=== PATIENT | female | born 1975 | race Two or more races ===

== ENCOUNTER 2021-06-14 07:02 | Day surgery (SDC) | payer OTHER ==
[~2021-06-14] VITALS: Ht 177.8 cm; Wt 109.8 kg
[~2021-06-14 07:02] MED LIST: ALLO300T2 PO; AMIT75TA2 PO; ATOR20TA50 PO; DICY20TA PO; FOLI1TAB6 PO; GABA-339 PO; INSLANTI SC; LEVO75TA6 PO; LISI2.5T47 PO; METF-372 PO; METH2.5T PO; METO-289 PO; PANT1INJ3 PO; PROM25TA5 PO; PUMP1CAP PO; SUMA100T15 PO; TRAM50TA2 PO
[2021-06-14] MEDS ORDERED: IODIXANOL 320MG/ML 100ML BTL IV ONE (07:55)
[2021-06-14] MEDS ORDERED: LIDOCAINE 2%HCL (LOCAL ANESTH.) INJ 20ML MDV ONE (07:55)
[2021-06-14] MEDS ORDERED: VERAPAMIL 2.5MG/ML INJ 2ML VIAL IV ONE (08:16)
[2021-06-14] MEDS ORDERED: HEPARIN SODIUM (PORCINE) 5000 UNITS/ML 1ML VIAL ONE (08:16)
[2021-06-14] MEDS ORDERED: ANGIOMAX 250 MG VIAL IV ONE (08:16)
[2021-06-14] MEDS ORDERED: MIDAZOLAM HCL 2MG/2ML 2ml VIAL (1mg/ml) ONE (08:17)
[2021-06-14] MEDS ORDERED: fentaNYL CITRATE 100 MCG/2 ML VL ONE (08:17)
[2021-06-14] MEDS ORDERED: SODIUM CHL 0.9% 0 ML ONE (08:17)
== END 2021-06-14 11:40 | disposition home or self-care (01) ==
LOC: CATH 07:02
PROVIDERS: ATTEND Internal Medicine Cardiovascular Disease
DX: R94.39 Abnormal result of other cardiovascular function study (principal); I25.10 Atherosclerotic heart disease of native coronary artery without angina pectoris; I10 Essential (primary) hypertension; E78.5 Hyperlipidemia, unspecified; J45.909 Unspecified asthma, uncomplicated; E11.9 Type 2 diabetes mellitus without complications; Z68.34 Body mass index [BMI] 34.0-34.9, adult; Z20.822 Contact with and (suspected) exposure to COVID-19; Z98.890 Other specified postprocedural states; Z79.899 Other long term (current) drug therapy; Z87.891 Personal history of nicotine dependence
CPT/HCPCS: 93458; C1769; C1887; C1894; J1644; J2250; J3010; J7030; Q9967; U0003; 99152; 99153

== ENCOUNTER 2021-09-02 17:00 | Emergency (ER) | payer OTHER ==
[~2021-09-02] VITALS: Ht 177.8 cm; Wt 108.0 kg
[~2021-09-02 17:00] MED LIST changes: -AMIT75TA2 PO; +AMIT75TA4 PO
[2021-09-02 17:06] VITALS: BP 122/86
[2021-09-02] MEDS ORDERED: SODIUM CHLORIDE 0.9% 1,000 ML IV ONE (18:00)
[2021-09-02 19:15] LABS: Basophils # (auto) 0 10 ^3/uL (0-0.2); Basophils % (auto) 0.3 % (0.0-2.0); Eosinophils # (auto) 0.1 10 ^3/uL (0-0.8); Eosinophils % (auto) 0.7 % (0.0-7.0); Hemoglobin 14.4 g/dL (12.2-16.2); Lymphocytes # (auto) 0.4 10 ^3/uL (0.4-5.4); Lymphocytes % (auto) 3.9 % (10.0-50.0); Mean Corpuscular Hgb Conc. 32.7 g/dL (32.0-36.0); Mean Corpuscular Volume 85.6 fL (80.0-100.0); Monocytes # (auto) 0.2 10 ^3/uL (0-1.3); Monocytes % (auto) 1.7 % (0.0-12.0); Neutrophils # (auto) 10.5 10 ^3/uL (1.6-8.6); Neutrophils % (auto) 93.4 % (37.0-80.0); Red Blood Cells 5.14 10^6/uL (4.0-5.20); Red Cell Distribution Width 15.1 % (11.8-14.3); White Blood Cell 11.2 10^3/uL (4.4-10.8)
[2021-09-02 19:16] LABS: Albumin 3.3 g/dL (3.4-5.0); Calcium 8.5 mg/dL (8.5-10.1); Magnesium 1.7 mg/dL (1.6-2.6); Potassium 4.5 mmol/L (3.5-5.1)
[2021-09-02 19:18] LABS: Lactic Acid w/Reflex 3.1 mmol/L (0.4-2.0)
[2021-09-02 19:20] LABS: BUN/Creatinine Ratio 16.4; Bilirubin, Total 0.9 mg/dL (0.2-1.0); INR 1.13 (0.9-1.15); Total Protein 7.8 g/dL (6.4-8.2)
[2021-09-02] MEDS ORDERED: IOHEXOL 300 MG/ML 100ML BOTTLE IJ ONE (21:16)
== END 2021-09-02 22:01 | disposition home or self-care (01) ==
LOC: ER 17:00 → EDBD 17:00 → EDUNIT# 17:00 → ER 22:01
DX: R11.2 Nausea with vomiting, unspecified (principal); R19.7 Diarrhea, unspecified; E11.9 Type 2 diabetes mellitus without complications; R00.0 Tachycardia, unspecified; J45.909 Unspecified asthma, uncomplicated; E78.5 Hyperlipidemia, unspecified; Z79.4 Long term (current) use of insulin; Z79.899 Other long term (current) drug therapy; Z87.11 Personal history of peptic ulcer disease; Z87.891 Personal history of nicotine dependence
CPT/HCPCS: 36415; 71045; 80053; 83605; 83690; 83735; 84484; 84702; 85025; 85610

== ENCOUNTER → 2021-09-28 | Day surgery (SDC) | payer OTHER ==
[~2021-09-28] VITALS: Ht 177.8 cm; Wt 104.3 kg
[~2021-09-28] MED LIST changes: +ACCU-CHEK COMFORT CURVE STRIP VI ONE; +DexAMETHasone SOD PHOS 10MG/1ML VIAL INJ ONE; +EPINEPHrine HCL 1 MG/1 ML AMP ONE; +FAMOTIDINE (10MG/ML) 2ML VL IV ONE; +GLYCOPYRROLATE 0.2 MG/ML 1ML VIAL ONE; +HYDROCORTISONE SOD SUCC 100 MG/2ML INJ VIAL ONE; +HYDROmorphone HCL 2 MG/ML VL IV PRN; +HYDROmorphone HCL 2 MG/ML VL ONE; +KETOROLAC TROMETH 30 MG/ML 1ML VIAL ONE; +LIDOCAINE 2% (LOCAL ANESTH.) PF 5ml SDV ONE; -METF-372 PO; +MIDAZOLAM HCL 2MG/2ML 2ml VIAL (1mg/ml) ONE; +ONDANSETRON HCL 4 MG/2 ML VIAL IV PRN; +ONDANSETRON HCL 4 MG/2 ML VIAL ONE; +PROPOFOL 10 MG/ML 20 ML IV ONE; +ROCURONIUM 10MG/ML 10ML VIAL IV ONE; +ROPIVACAINE 0.5% (5MG/ML) 20ML AMPULE IJ ONE; +ceFAZolin 1GM/50ML 100 ML IV ONE; +fentaNYL CITRATE 100 MCG/2 ML VL ONE
[2021-09-28 14:30] VITALS: BP 109/64
== END | disposition home or self-care (01) ==
LOC: SUR 09:14
PROVIDERS: ATTEND Orthopaedic Surgery
DX: M87.051 Idiopathic aseptic necrosis of right femur (principal); Z87.891 Personal history of nicotine dependence; I10 Essential (primary) hypertension; J45.909 Unspecified asthma, uncomplicated; E07.9 Disorder of thyroid, unspecified; G40.909 Epilepsy, unspecified, not intractable, without status epilepticus; E11.9 Type 2 diabetes mellitus without complications; G43.909 Migraine, unspecified, not intractable, without status migrainosus; M19.90 Unspecified osteoarthritis, unspecified site; Z98.890 Other specified postprocedural states; Z79.899 Other long term (current) drug therapy; Z20.822 Contact with and (suspected) exposure to COVID-19
CPT/HCPCS: 27299; 73501; 76000; 82962; 86850; 86900; 86901; J0171; J0690; J1100; J1170; J1720; J1885; J2001; J2250; J2405; J2704; J2795; J3010; J3490; U0003

== ENCOUNTER 2023-06-04 10:55 | Inpatient (IN) | payer OTHER ==
[~2023-06-04] VITALS: Ht 170.2 cm; Wt 113.0 kg
[~2023-06-04 10:55] MED LIST changes: -ACCU-CHEK COMFORT CURVE STRIP VI ONE; -AMIT75TA4 PO; +AMIT75TA6 PO; -DexAMETHasone SOD PHOS 10MG/1ML VIAL INJ ONE; -EPINEPHrine HCL 1 MG/1 ML AMP ONE; -FAMOTIDINE (10MG/ML) 2ML VL IV ONE; +FOLI-119 PO; -FOLI1TAB6 PO; -GLYCOPYRROLATE 0.2 MG/ML 1ML VIAL ONE; -HYDROCORTISONE SOD SUCC 100 MG/2ML INJ VIAL ONE; -HYDROmorphone HCL 2 MG/ML VL IV PRN; -HYDROmorphone HCL 2 MG/ML VL ONE; -KETOROLAC TROMETH 30 MG/ML 1ML VIAL ONE; -LIDOCAINE 2% (LOCAL ANESTH.) PF 5ml SDV ONE; -MIDAZOLAM HCL 2MG/2ML 2ml VIAL (1mg/ml) ONE; -ONDANSETRON HCL 4 MG/2 ML VIAL IV PRN; -ONDANSETRON HCL 4 MG/2 ML VIAL ONE; +PROM25TA10 PO; -PROM25TA5 PO; -PROPOFOL 10 MG/ML 20 ML IV ONE; -ROCURONIUM 10MG/ML 10ML VIAL IV ONE; -ROPIVACAINE 0.5% (5MG/ML) 20ML AMPULE IJ ONE; -ceFAZolin 1GM/50ML 100 ML IV ONE; -fentaNYL CITRATE 100 MCG/2 ML VL ONE
[2023-06-04 12:17] LABS: Basophils # (auto) 0 10 ^3/uL (0-0.2); Basophils % (auto) 0.6 % (0.0-2.0); Eosinophils # (auto) 0.2 10 ^3/uL (0-0.8); Eosinophils % (auto) 3.4 % (0.0-7.0); Hematocrit 39.1 % (36.0-46.0); Hemoglobin 13.3 g/dL (12.2-16.2); Lymphocytes # (auto) 1.4 10 ^3/uL (0.4-5.4); Lymphocytes % (auto) 23.1 % (10.0-50.0); Mean Corpuscular Hemoglobin 28.6 pg (28.0-32.0); Mean Corpuscular Volume 84.3 fL (80.0-100.0); Monocytes # (auto) 0.4 10 ^3/uL (0-1.3); Monocytes % (auto) 6.2 % (0.0-12.0); Neutrophils % (auto) 66.7 % (37.0-80.0); Nucleated Red Blood Cells % 0.2 %; Red Blood Cells 4.64 10^6/uL (4.0-5.20); Red Cell Distribution Width 13.9 % (11.8-14.3); White Blood Cell 6.1 10^3/uL (4.4-10.8)
[2023-06-04 12:30] LABS: INR 1.03 (0.9-1.15); Partial Thromboplastin Time 26.8 SEC (24.5-34.5); Prothrombin Time 10.8 sec (9.3-11.8)
[2023-06-04 12:31] LABS: Albumin 3.2 g/dL (3.4-5.0); Calcium 8.8 mg/dL (8.5-10.1); Potassium 3.8 mmol/L (3.5-5.1)
[2023-06-04 12:40] LABS: BUN/Creatinine Ratio 10.6 (10.0-20.0); Bilirubin, Total 0.9 mg/dL (0.2-1.0); Total Protein 7.6 g/dL (6.4-8.2)
[2023-06-04] MEDS ORDERED: InsuLIN REG 1unit/0.01ml Soln (100units/ml) IV ONE (14:30)
[2023-06-04 15:03] LABS: Urine Bacteria FEW /hpf (None Seen); Urine Blood Negative /uL (Negative); Urine Clarity HAZY (Clear); Urine Color Colorless (Yellow); Urine Mucus FEW (None Seen); Urine Protein, UAD Negative (Negative); Urine Specific Gravity 1.023 (1.001-1.035); Urine Urobilinogen Normal (Negative); Urine WBC 49 /hpf (0 - 5); Urine pH 5.5 (5.0-8.0)
[2023-06-04] MEDS ORDERED: CIPR500T4 PO (15:46)
[2023-06-04] MEDS ORDERED: cefTRIAXone 1GM/50ML D5W 50 ML IV ONE (16:00)
[2023-06-04] MEDS ORDERED: CEFTRIAXONE SODIUM 2 GM in D5W 5% 100 ML IV ONE (16:00)
[2023-06-04] MEDS ORDERED: SODIUM CHLORIDE 0.9% 1,000 ML IV ONE ×2 (16:30)
[2023-06-04] MEDS ORDERED: ONDANSETRON HCL 4 MG/2 ML VIAL IV PRN (16:30)
[2023-06-04] MEDS ORDERED: DEXTROSE (50%) 50ML SYRG IV PRN (16:30)
[2023-06-04] MEDS ORDERED: NITROGLYCERIN 0.4 MG SL TAB SL PRN (16:30)
[2023-06-04] MEDS ORDERED: MORPHINE SULFATE INJ 2 MG/ml SYRG IV PRN (16:30)
[2023-06-04] MEDS: InsuLIN REG 1unit/0.01ml Soln (100units/ml) SC SCH (18:00)
[2023-06-04] MEDS: ACCU-CHEK COMFORT CURVE STRIP VI SCH (18:06)
[2023-06-04] MEDS: SODIUM CHLORIDE 0.9% 1,000 ML IV SCH (20:22)
[2023-06-04 22:50] VITALS: RESP 16
[2023-06-04] MEDS: AMITRIPTYLINE HCL 25 MG TAB PO SCH (22:51)
[2023-06-04] MEDS: DICYCLOMINE HCL 10 MG CAP PO SCH (22:51)
[2023-06-04] MEDS: traMADol HCL 50 MG TAB PO SCH (22:51)
[2023-06-04] MEDS: INSULIN LANTUS (GLARGINE) 1 /0.01ml (100units/ml) SC SCH (22:52)
[2023-06-04 23:57] VITALS: BP 110/71; PULSE 109; RESP 18; TEMP 98.6; O2SAT 99
[2023-06-05] VITALS (7 sets, daily range): BP systolic 103–109; BP diastolic 50–71; PULSE 89–120; RESP 16–19; TEMP 98–98.5; O2SAT 92–97
[2023-06-05] MEDS: ACCU-CHEK COMFORT CURVE STRIP VI SCH ×4 (00:19→17:40)
[2023-06-05] MEDS: InsuLIN REG 1unit/0.01ml Soln (100units/ml) SC SCH ×4 (00:19→17:42)
[2023-06-05] MEDS ORDERED: SULF500T57 PO (00:37)
[2023-06-05] MEDS ORDERED: BUDE1AER4 IN (00:37)
[2023-06-05] MEDS ORDERED: SERT-377 PO (00:37)
[2023-06-05] MEDS ORDERED: GABA-339 PO (00:37)
[2023-06-05] MEDS ORDERED: METO-289 PO (00:37)
[2023-06-05] MEDS ORDERED: ALBU108A5 IN (00:37)
[2023-06-05] MEDS ORDERED: LISI-275 PO (00:37)
[2023-06-05] MEDS: SODIUM CHLORIDE 0.9% 1,000 ML IV SCH ×3 (00:38→16:30)
[2023-06-05] MEDS: DICYCLOMINE HCL 10 MG CAP PO SCH ×3 (05:24→22:09)
[2023-06-05] MEDS: LEVOTHYROXINE SODIUM 50 MCG TAB PO SCH (06:11)
[2023-06-05] MEDS: INSULIN LANTUS (GLARGINE) 1 /0.01ml (100units/ml) SC SCH ×2 (06:17→22:18)
[2023-06-05 06:20] LABS: Basophils # (auto) 0 10 ^3/uL (0-0.2); Basophils % (auto) 0.5 % (0.0-2.0); Eosinophils # (auto) 0.3 10 ^3/uL (0-0.8); Eosinophils % (auto) 3.8 % (0.0-7.0); Hematocrit 37.6 % (36.0-46.0); Lymphocytes # (auto) 3.9 10 ^3/uL (0.4-5.4); Lymphocytes % (auto) 50.2 % (10.0-50.0); Mean Corpuscular Hemoglobin 28.7 pg (28.0-32.0); Mean Corpuscular Hgb Conc. 34.5 g/dL (32.0-36.0); Mean Corpuscular Volume 83.1 fL (80.0-100.0); Monocytes # (auto) 0.6 10 ^3/uL (0-1.3); Monocytes % (auto) 7.2 % (0.0-12.0); Neutrophils % (auto) 38.3 % (37.0-80.0); Nucleated Red Blood Cells % 0.1 %; Red Blood Cells 4.53 10^6/uL (4.0-5.20); Red Cell Distribution Width 14.2 % (11.8-14.3); White Blood Cell 7.8 10^3/uL (4.4-10.8)
[2023-06-05 06:33] LABS: BUN/Creatinine Ratio 11.1 (10.0-20.0); Calcium 8.9 mg/dL (8.5-10.1)
[2023-06-05 06:43] LABS: Potassium 2.7 mmol/L (3.5-5.1)
[2023-06-05] MEDS ORDERED: POTASSIUM CHL 20 Meq TABLET PO ONE (07:15)
[2023-06-05] MEDS: traMADol HCL 50 MG TAB PO SCH ×2 (10:00→22:12)
[2023-06-05] MEDS ORDERED: FAMOTIDINE 20 MG TAB PO SCH (10:00)
[2023-06-05] MEDS: GABAPENTIN 300 MG CAP PO SCH (10:01)
[2023-06-05] MEDS: ALLOPURINOL 300 MG TAB PO SCH (10:01)
[2023-06-05] MEDS: cefTRIAXone 1GM/50ML D5W 50 ML IV SCH ×2 (10:01→17:40)
[2023-06-05] MEDS: ATORVASTATIN 20 MG TAB PO SCH (10:01)
[2023-06-05] MEDS: METOPROLOL SUCCINATE XL 50 MG TAB PO SCH (10:02)
[2023-06-05] MEDS ORDERED: POTASSIUM CHLORIDE 20 MEQ, LIDOCAINE 1% (LOCAL ANESTH.) 2 ML in SODIUM CHL 0.9% 100 ML IV ONE (12:30)
[2023-06-05] MEDS: MAGNESIUM SULFATE 1GM/100ML 100 ML IV SCH ×2 (13:43→15:19)
[2023-06-05] MEDS: AMITRIPTYLINE HCL 25 MG TAB PO SCH (22:10)
[2023-06-06] MEDS: ACETAMINOPHEN 325 MG TAB PO PRN ×2 (01:03→09:32)
[2023-06-06] MEDS: ACCU-CHEK COMFORT CURVE STRIP VI SCH ×3 (01:04→12:45)
[2023-06-06] MEDS: InsuLIN REG 1unit/0.01ml Soln (100units/ml) SC SCH ×3 (01:07→12:47)
[2023-06-06] MEDS: SODIUM CHLORIDE 0.9% 1,000 ML IV SCH ×2 (01:10→08:30)
[2023-06-06 05:54] VITALS: BP 128/75; PULSE 86; RESP 18; TEMP 98.7; O2SAT 97
[2023-06-06] MEDS: DICYCLOMINE HCL 10 MG CAP PO SCH ×2 (06:52→14:00)
[2023-06-06] MEDS: LEVOTHYROXINE SODIUM 50 MCG TAB PO SCH (06:53)
[2023-06-06] MEDS: INSULIN LANTUS (GLARGINE) 1 /0.01ml (100units/ml) SC SCH (06:58)
[2023-06-06 08:00] VITALS: BP 104/68; PULSE 81; RESP 14; TEMP 97; O2SAT 95
[2023-06-06 09:18] VITALS: BP 104/68; PULSE 94; RESP 14; TEMP 97.8; O2SAT 95
[2023-06-06] MEDS: GABAPENTIN 300 MG CAP PO SCH (09:33)
[2023-06-06] MEDS: cefTRIAXone 1GM/50ML D5W 50 ML IV SCH (09:33)
[2023-06-06] MEDS: ALLOPURINOL 300 MG TAB PO SCH (09:33)
[2023-06-06] MEDS: METOPROLOL SUCCINATE XL 50 MG TAB PO SCH (09:34)
[2023-06-06] MEDS: ATORVASTATIN 20 MG TAB PO SCH (09:34)
[2023-06-06] MEDS: traMADol HCL 50 MG TAB PO SCH (09:35)
[2023-06-06 09:40] LABS: Basophils # (auto) 0 10 ^3/uL (0-0.2); Basophils % (auto) 0.6 % (0.0-2.0); Eosinophils # (auto) 0.3 10 ^3/uL (0-0.8); Eosinophils % (auto) 4.9 % (0.0-7.0); Hematocrit 37.1 % (36.0-46.0); Hemoglobin 12.5 g/dL (12.2-16.2); Lymphocytes # (auto) 2.2 10 ^3/uL (0.4-5.4); Lymphocytes % (auto) 40.9 % (10.0-50.0); Mean Corpuscular Hemoglobin 28.6 pg (28.0-32.0); Mean Corpuscular Hgb Conc. 33.7 g/dL (32.0-36.0); Mean Corpuscular Volume 84.9 fL (80.0-100.0); Monocytes # (auto) 0.3 10 ^3/uL (0-1.3); Monocytes % (auto) 6.1 % (0.0-12.0); Neutrophils # (auto) 2.6 10 ^3/uL (1.6-8.6); Neutrophils % (auto) 47.5 % (37.0-80.0); Nucleated Red Blood Cells % 0.1 %; Red Blood Cells 4.37 10^6/uL (4.0-5.20); Red Cell Distribution Width 13.9 % (11.8-14.3); White Blood Cell 5.4 10^3/uL (4.4-10.8)
[2023-06-06 10:01] LABS: Calcium 8.4 mg/dL (8.5-10.1); Potassium 3.7 mmol/L (3.5-5.1)
[2023-06-06 10:04] LABS: BUN/Creatinine Ratio 8.3 (10.0-20.0)
[2023-06-06] MEDS ORDERED: INSREGI SC (12:55)
[2023-06-06] MEDS ORDERED: INSLANTI SC (12:55)
[2023-06-06 13:32] VITALS: BP 104/83; PULSE 87; RESP 16; TEMP 98.3; O2SAT 97
[2023-06-06 14:26] VITALS: BP 104/83; PULSE 87; RESP 16; TEMP 98.3; O2SAT 97
== END 2023-06-06 16:30 | disposition home health service (06) | DRG 690 ==
LOC: ER 10:55 → EDBD 10:55 → OVERFLOW 16:26 → EAST 23:24 → TELE-EAST 06-05 08:16
PROVIDERS: ADMIT Hospitalist; ATTEND Hospitalist
DX: N39.0 Urinary tract infection, site not specified (principal); E11.65 Type 2 diabetes mellitus with hyperglycemia; E03.9 Hypothyroidism, unspecified; J45.909 Unspecified asthma, uncomplicated; I11.9 Hypertensive heart disease without heart failure; G89.29 Other chronic pain; S80.02XA Contusion of left knee, initial encounter; S80.01XA Contusion of right knee, initial encounter; W18.39XA Other fall on same level, initial encounter; Y93.89 Activity, other specified; Z80.9 Family history of malignant neoplasm, unspecified; Z83.3 Family history of diabetes mellitus; Z87.11 Personal history of peptic ulcer disease; Z87.891 Personal history of nicotine dependence; Z88.8 Allergy status to other drugs, medicaments and biological substances; Y92.89 Other specified places as the place of occurrence of the external cause; Y99.8 Other external cause status
CPT/HCPCS: 36415; 71045; 73502; 73700; 80048; 80053; 81001; 82962; 83605; 83735; 85025; 85610; 85730; 86850; 86900; 86901; 87040; 96361; 96365; 96375; 97110; 97116; 97163; 97530; G0378; J0696; J1815; J2001; J7060